=== PATIENT | female | born 1945 | race Caucasian/White ===

== ENCOUNTER 2022-04-17 19:42 | Observation (INO) | payer MEDICARE, MEDICAID, SELFPAY ==
[2022-04-17 19:44] VITALS: BP 131/86; PULSE 32; RESP 18; TEMP 35.7; O2SAT 95; BMI 35.2
[2022-04-17 20:05] VITALS: PULSE 68; RESP 24; O2SAT 96
--- NOTE | 2022-04-17 20:18 | EKG12_ITS ---
Test Reason : DYSRYTHMIA Blood Pressure : / mmHG Vent. Rate : 068 BPM Atrial Rate : 068 BPM P-R Int : 130 ms QRS Dur : 084 ms QT Int : 456 ms P-R-T Axes : 068 006 035 degrees QTc Int : 484 ms Sinus rhythm with bigeminy Nonspecific ST and T wave abnormality Abnormal ECG Confirmed by RICHARD RODRIGUEZ, DANY ([id number]), publications editor DORI GATES ([id number]) on 04/19/2022 11:09:57 AM Referred By: DEBBIE Confirmed By:DANY RAMOS MD
[2022-04-17 20:32] LABS: Absolute Lymphocyte Count 3.54 X10^3/uL (0.83-4.51); Absolute Neutrophil Count 5.6 X10^3/uL (2.0-7.7); Basophil# 0.07 X10^3/uL; Basophil% 0.7 % (0-1); Eosinophil# 0.27 X10^3/uL; Eosinophils% 2.6 % (0-5); Hematocrit 37.4 % (37-47); Hemoglobin 11.8 g/dL (12.0-15.0); Lymphocyte # 3.54 X10^3/ul (0.83-4.51); Lymphocyte % 34.1 % (19-41); Mean Corp Hgb Conc 31.6 g/dL (32-36); Mean Corpuscular Hgb 30.7 pg (27.0-32.0); Mean Corpuscular Volume 97.4 fL (81-99); Mean Platelet Vol. 11.7 fl (6.2-12.0); Monocyte# 0.86 X10^3/uL; Monocyte% 8.3 % (0-10); NRBC Flagged by Analyzer 0 % (0-5); Neutrophil # 5.57 X10^3/uL (2.7-7.7); Neutrophil % 53.6 % (47-70); Platelet Count 382 K/mm3 (150-450); RBC Distribution Width CV 13.6 % (11.6-14.6); RBC Distribution Width SD 48.1 fl (35.1-43.9); Red Blood Count 3.84 M/mm3 (4.2-5.4); White Blood Count 10.4 K/mm3 (4.4-11.0)
[2022-04-17] MEDS: Aspirin 81 MG TAB.CHEW 324 MG PO (20:33)
--- NOTE | 2022-04-17 20:41 | EDS_ITS ---
HPI History of Present Illness Chief Complaint: Dizziness Informant: patient and family Narrative Narrative: Patient presents having several episodes of intermittent weakness and lightheadedness like she is going to pass out today. She has not actually passed out. These have occurred when up as well as when laying down. She states she gets the nausea since that flows through her with these. But she does not feel abnormal pulses. And she does not have chest pain or dyspnea. She has never had this before. The only new medicine that she is getting is azithromycin that was placed through her peritoneal dialysis fluid on Tuesday. This is because she was having cloudy fluid and they found out she has mild peritonitis. But she still eating and drinking. She has had no fevers or chills. No vomiting. She is not having abdominal pain. She states she feels a little pagan when she does peritoneal dialysis but its not hurting. She denies history of heart disease or any heart rhythm problems. I do not get that she is on any beta-blockers or calcium channel blockers. She is not having symptoms right now. Nothing specifically makes them come or go. I attempted to review prior records but we have no records and no prior EKGs on her on our system. [facility] Home Medications allopurinol 100 mg tablet 100 mg PO DAILY 04/17/22 [History Last Taken Unknown] aspirin 81 mg capsule 81 mg PO DAILY 04/17/22 [History Last Taken Unknown] atorvastatin 40 mg tablet 40 mg PO QPM 04/17/22 [History Last Taken Unknown] citalopram 40 mg tablet 40 mg PO DAILY 04/17/22 [History Last Taken Unknown] clopidogrel 75 mg tablet 75 mg PO DAILY 04/17/22 [History Last Taken Unknown] ezetimibe 10 mg tablet 10 mg PO DAILY 04/17/22 [History Last Taken Unknown] fexofenadine 60 mg tablet 60 mg PO 1XD 04/17/22 [History Last Taken Unknown] levothyroxine 75 mcg tablet (Synthroid) 75 mcg PO DAILY 04/17/22 [History Last Taken Unknown] lisinopril 20 mg tablet 20 mg PO BID 04/17/22 [History Last Taken Unknown] melatonin 5 mg tablet 5 mg PO QHS 04/17/22 [History Last Taken Unknown] Allergy/AdvReac Type Severity Reaction Status Date / Time ampicillin Allergy Hives Verified 04/17/22 19:44 loratadine Allergy Hives Verified 04/17/22 20:09 Penicillins [PCN] Allergy Hives Verified 04/17/22 19:44 Social History Smoking Status: Current every day smoker tobacco type: cigarettes ROS ROS ED Constitutional Constitutional ED: Denies chills or fever(s) Eyes Eyes: Denies change in vision ENT ENT ED: Denies rhinorrhea or sore throat Cardiovascular Cardiovascular: Reports other Details: See history of present illness. ; Denies chest pain, palpitations or racing heartbeat Respiratory/Chest Respiratory/Chest: Denies cough or dyspnea Gastrointestinal Gastrointestinal: Denies abdominal pain, nausea or vomiting Genitourinary Genitourinary ED: Reports other Details: Patient makes rare small amounts of urine. Musculoskeletal Musculoskeletal: Denies myalgias Integumentary Denies rash Neurologic Neurologic: Denies headache(s) Psychiatric Psychiatric: Denies anxiety Endocrine Endocrinology: Denies polyuria Hematologic/Lymphatic Hematologic/Lymphatic: Reports easy bleeding and easy bruising Allergic/Immunologic Allergic/Immunologic ED: Denies urticaria EXAM Physical Exam Narrative Exam Narrative: Patient is awake and alert. She is in no acute distress. She will occasionally have a sinus rhythm at about 70 and then go into bigeminy with about the same overall rate. She does not seem to have symptoms of this while laying down. HEENT shows no trauma. Mucous membranes could be minimally dry. There is no JVD on her neck. Lungs are actually clear. I hear no wheezes rhonchi or rales. Heart is regular at times but also has PVCs at other times. These PVCs do not seem to provide distal pulses. Abdomen is soft nontender. Her Tenckhoff catheter is in place. The fluid that is in it does not look cloudy but this is difficult to ascertain through just the tubing. There is no tenderness rebound or guarding. There is no flank tenderness Extremities are not small but they do not have notable pitting edema. Skin is not notably pale. There is no diaphoresis. No jaundice. Patient is neurologically awake alert appropriate with no focal deficit. Const Vital Signs: 04/17/22 19:44 04/17/22 20:05 04/17/22 20:08 Temperature 96.3 F L Temperature Source Temporal Pulse Rate 32 L 68 Respiratory Rate 18 24 H Respiratory Pattern Normal Blood Pressure 131/86 H Blood Pressure Mean 101 Pulse Ox 95 96 Oxygen Delivery Method Room Air Room Air 04/17/22 20:35 04/17/22 22:48 04/17/22 22:48 Temperature 97.8 F Temperature Source Temporal Pulse Rate 76 76 Respiratory Rate 20 H 20 H Respiratory Pattern Blood Pressure 138/61 H 138/61 H Blood Pressure Mean 86 86 Pulse Ox 96 96 Oxygen Delivery Method Room Air Room Air Room Air 04/17/22 23:06 Temperature Temperature Source Pulse Rate Respiratory Rate Respiratory Pattern Blood Pressure Blood Pressure Mean Pulse Ox 96 Oxygen Delivery Method Room Air MDM MDM MDM Narrative Medical decision making narrative: My independent interpretation of the patient's single view AP chest x-ray is suspicious for hiatal hernia. I do not see infiltrative process. Final reading by radiology shows left paraesophageal hernia with adjacent moderate compressive atelectasis. Patient's CBC shows normal white count and platelets. His hemoglobin was minimally low at 8.8 but this is not the cause of her symptoms. Electrolytes were actually quite normal. Creatinine was elevated consistent with a history of renal failure. Glucose was only minimally up at 117. Calcium was mildly low at 7.9 but this is likely due to low albumin. I do not have an albumin level at this time. Magnesium was a bit low. Even though magnesium is generally renally cleared, I think with her dysrhythmia and this low magnesium we should replace this. I will order a single gram to be given. Troponin was slightly elevated at 64. This is a nonspecific elevation. She has never had chest pain. This may be even elevated due to her renal failure. TSH was also high. I have checked the monitor multiple times here. She occasionally will have a sinus rhythm with a rate of about 65-70. She will have PVCs. But she spends qu ite a bit of time in bigeminy. A single time I saw a couplet of PVCs but never more. She has not had any more syncopal events. Her blood pressures been good. I did discuss the case with her rn community health, Dr. Soto. He agreed with admission and they will follow. He would not solis to put in a pacemaker tonight and I agree that she does not need that acutely. I have discussed the case with the hospitalist also. Lab Data Attestation: I reviewed the patient's lab results. Labs: Laboratory Results - last 24 hr 04/17/22 04/17/22 19:57 19:57 WBC 10.4 RBC 3.84 L Hgb 11.8 L Hct 37.4 MCV 97.4 MCH 30.7 MCHC 31.6 L RDW Std Deviation 48.1 H RDW Coeff of Latrell 13.6 Plt Count 382 MPV 11.7 Immature Gran % (Auto) 0.700 Neut % (Auto) 53.6 Lymph % (Auto) 34.1 [place] % (Auto) 8.3 Eos % (Auto) 2.6 Baso % (Auto) 0.7 Absolute Neuts (auto) 5.6 Absolute Lymphs (auto) 3.54 Nucleated RBC % 0 Sodium 140 Potassium 4.1 Chloride 105 Carbon Dioxide 28.0 Anion Gap 7 BUN 18 Creatinine 2.18 H Estim Creat Clear Calc 19.55 Est GFR (MDRD) Af Amer 28 L Est GFR (MDRD) Non-Af 23 L BUN/Creatinine Ratio 8.3 L Glucose 117 H Calcium 7.9 L Magnesium 1.5 L Troponin I High Sens 64 H TSH 5.64 H Radiography Diagnostic Testing: Clinical Impression(s) from Imaging Studies Chest X-Ray 04/17/22 20:48 IMPRESSION: Large left paraesophageal hernia with adjacent moderate compressive atelectasis. Electronically Signed: Ze Triana MD, CHRIS at 20:59 EST Reading Location ID and State: [facility] / [place] Tel , Service support , EKG Initial EKG: Comments: My independent interpretation of the EKG done for syncope and bigeminy shows a bigeminy rhythm with overall rate of 68. Bradycardic sinus rhythm. Her normal beats do appear to be sinus but overall bradycardia with every other beat PVC. No acute ST elevation or depression. NE interval and QRS duration are normal. QTc is a bit long at 484 ms. I do not have old EKG for comparison. Discharge Plan Dx/Rx/DC Orders Clinical Impression: Near syncope, Bigeminy, Elevated troponin, Hypomagnesemia Disposition Disposition: Acute Care [facility]
--- NOTE | 2022-04-17 20:48 | RAD_ITS ---
INDICATION: chest pain EXAMINATION/TECHNIQUE: X-RAY - XR Chest 1 View COMPARISON: None. FINDINGS: LINES/DEVICES: None. LUNGS: Compressive atelectasis within left lower lobe and lingula. MEDIASTINUM AND CARDIOVASCULAR STRUCTURES: Heart size normal. Large left paraesophageal hernia. BONES AND SOFT TISSUES: Unremarkable. RAD/Chest 1 View (Portable) IMPRESSION: Large left paraesophageal hernia with adjacent moderate compressive atelectasis. Electronically Signed: Ze Triana MD, CHRIS at 20:59 EST ,
[2022-04-17 21:26] LABS: Anion Gap 7 (5-15); BUN 18 mg/dL (7-18); BUN/Creat Ratio 8.3 RATIO (10-20); Calcium,Total 7.9 mg/dL (8.5-10.1); Chloride 105 mmol/L (98-107); Creatinine, Serum 2.18 mg/dL (0.55-1.02); EST Glomerular Filtration Rate 23 mL/min (>60); Est Glom Filt Rate - Afr Amer 28 mL/min (>60); Estimated Creatinine Clearance 19.55 ml/min; Glucose 117 mg/dL (74-106); Magnesium 1.5 mg/dL (1.6-2.6); Potassium 4.1 mmol/L (3.5-5.1); Sodium Level 140 mmol/L (136-145); Thyroid Stim Hormone (TSH) 5.64 uIU/mL (0.358-3.74); Troponin-I HS (w/2H Reflex) 64 pg/mL (3.0-54.0)
[2022-04-17 22:26] LABS: Reflex Troponin-HS? (from REC) Y
[2022-04-17 22:48] VITALS: BP 138/61; PULSE 76; RESP 20; TEMP 36.6; O2SAT 96
[2022-04-17 23:06] VITALS: O2SAT 96
--- NOTE | 2022-04-17 23:28 | HP.PCM.HOS_ITS ---
HPI - General General Date of Admission: 04/17/22 Date of Service: 04/17/22 Chief Complaint: near syncope HPI Narrative MOSHE DOWNING, is a 76 F with a past medical history as outlined who presents via the ED on 04/17/2022 with a complaint of near syncope. Patient has been on azithromycin for the past few days on account of peritonitis from peritoneal dialysis. Patient says she felt weak and lightheaded patient was out for about a minute and subsequently came around. She denied any headache, palpitations, blurred vision, dizziness, nausea vomiting or diarrhea. She had not had any other symptoms. She recently had cloudy peritoneal fluid and she was diagnosed with mild peritonitis and placed on azithromycin by her radio sales account executive. She denies any fever or chills and has not had any abdominal pain. Patient denies any history of heart disease and says she is never had any stents placed or pacemaker or had any heart surgery. She denies any family history of this and the only new medication that she is taking is the azithromycin. She is not on any beta-tawana. Review of systems otherwise negative. Vitals in the ED where At time of review, vitals were temperature of 97.8 Fahrenheit with pulse rate of 76, blood pressure 138/60 1 mm respiratory of 20. She was saturating 96% on room air. Of note, when she came into the ED initially her heart rate was 32 but was noticed that she was in bigeminy on the telemetry so each ventricular couplets was counted as 1 has her heart rate being recorded as 32. EKG showed sinus rhythm with PVCs. CBC was unremarkable and BMP showed potassium of 4.1, creatinine of 2.18 and magnesium of 1.5. TSH was 5.6 when initial troponin was 64. Chest x-ray showed a large left paraesophageal hernia with moderate adjacent compressive atelectasis. She has been admitted to be managed for near syncope likely due to ventricular bigeminy in the setting of hypomagnesemia. [facility] Medical History (Updated 04/18/22 @ 00:23 by Amberly Adams) Dialysis patient GERD (gastroesophageal reflux disease) Kidney disease Non-smoker Sleep apnea TIA (transient ischemic attack) Home Medications allopurinol 100 mg tablet 100 mg PO DAILY 04/17/22 [History Last Taken Unknown] aspirin 81 mg capsule 81 mg PO DAILY 04/17/22 [History Last Taken Unknown] atorvastatin 40 mg tablet 40 mg PO QPM 04/17/22 [History Last Taken Unknown] citalopram 40 mg tablet 40 mg PO DAILY 04/17/22 [History Last Taken Unknown] clopidogrel 75 mg tablet 75 mg PO DAILY 04/17/22 [History Last Taken Unknown] ezetimibe 10 mg tablet 10 mg PO DAILY 04/17/22 [History Last Taken Unknown] fexofenadine 60 mg tablet 60 mg PO 1XD 04/17/22 [History Last Taken Unknown] levothyroxine 75 mcg tablet (Synthroid) 75 mcg PO DAILY 04/17/22 [History Last Taken Unknown] lisinopril 20 mg tablet 20 mg PO BID 04/17/22 [History Last Taken Unknown] melatonin 5 mg tablet 5 mg PO QHS 04/17/22 [History Last Taken Unknown] vancomycin 1.75 gram/500 mL in dextrose 5 % intravenous solution 1,750 mg Q5D PERITONITIS 04/18/22 [History Last Taken 04/14/22] Allergy/AdvReac Type Severity Reaction Status Date / Time ampicillin Allergy Hives Verified 04/17/22 19:44 loratadine Allergy Hives Verified 04/17/22 20:09 Penicillins [PCN] Allergy Hives Verified 04/17/22 19:44 Social History Smoking Status: Current every day smoker tobacco type: cigarettes ROS Review of Systems ROS Unobtainable: Denies due to encephalopathy Constitutional Constitutional: Reports fatigue, malaise and weakness; Denies anorexia, chills or fever(s) Eyes Eyes: Denies change in vision ENT HEENT: Denies dysphagia, headache(s) or sore throat Cardiovascular Cardiovascular: Reports lightheadedness; Denies chest pain, dyspnea on exertion, edema, orthopnea, palpitations, paroxysmal nocturnal dyspnea, rapid heart rate or syncope Respiratory/Chest Respiratory/Chest: Denies cough, dyspnea, productive cough, shortness of breath at rest, shortness of breath with exertion or wheezing Gastrointestinal Gastrointestinal: Denies abdominal pain, diarrhea, nausea or vomiting Genitourinary Genitourinary: Denies dysuria Musculoskeletal Musculoskeletal: Denies arthralgias, joint pain or joint stiffness Neurologic Neurologic: Reports dizziness; Denies confusion, focal weakness, headache(s), numbness, seizure-like activity, seizures, syncope or tingling Psychiatric Psychiatric: Denies anxiety or depression Endocrine Endocrinology: Denies change in body appearance Hematologic/Lymphatic Hematologic/Lymphatic: Denies anemia Vital Signs Vital Signs Vital Signs: 04/17/22 19:44 04/17/22 20:05 04/17/22 20:08 Temperature 96.3 F L Temperature Source Temporal Pulse Rate 32 L 68 Respiratory Rate 18 24 H Respiratory Pattern Normal Blood Pressure 131/86 H Blood Pressure Mean 101 Pulse Ox 95 96 Oxygen Delivery Method Room Air Room Air 04/17/22 20:35 04/17/22 22:48 04/17/22 22:48 Temperature 97.8 F Temperature Source Temporal Pulse Rate 76 76 Respiratory Rate 20 H 20 H Respiratory Pattern Blood Pressure 138/61 H 138/61 H Blood Pressure Mean 86 86 Pulse Ox 96 96 Oxygen Delivery Method Room Air Room Air Room Air 04/17/22 23:06 Temperature Temperature Source Pulse Rate Respiratory Rate Respiratory Pattern Blood Pressure Blood Pressure Mean Pulse Ox 96 Oxygen Delivery Method Room Air Weight Weight: 205 lb Body Mass Index (BMI) 35.2 Physical Exam Const alert, oriented x3 and no apparent distress General Appearance: cooperative HEENT normocephalic, head/scalp atraumatic, hearing grossly normal bilaterally and m oist oral mucous membranes Mouth: oral and palatal mucosa normal Eyes PERRL, EOMs intact bilaterally and conjunctivae normal Neck no lymphadenopathy, supple and no JVD Resp normal respiratory effort, no retractions, no use of accessory muscles and clear to auscultation bilaterally Cardio regular rate, regular rhythm, S1 normal heart sound, S2 normal heart sound and no murmurs Cardio Narrative: occasional PVCs GI normal to inspection, nondistended, normoactive bowel sounds, soft to palpation, non-tender and non-distended Extremity normal to inspection, full ROM and no clubbing, cyanosis or edema Neuro oriented x3, CN's II-XII intact bilaterally, moves all extremities and no focal motor deficits Sensorium / Orientation: awake and alert Motor Exam: strength 5/5 throughout Psych affect normal Results Lab / Micro Data Result Diagrams: 04/18/22 03:45 04/18/22 03:45 Labs: Laboratory Results - last 24 hr 04/17/22 19:57: WBC 10.4, RBC 3.84 L, Hgb 11.8 L, Hct 37.4, MCV 97.4, MCH 30.7, MCHC 31.6 L, RDW Std Deviation 48.1 H, RDW Coeff of Latrell 13.6, Plt Count 382, MPV 11.7, Immature Gran % (Auto) 0.700, Neut % (Auto) 53.6, Lymph % (Auto) 34.1, [place] % (Auto) 8.3, Eos % (Auto) 2.6, Baso % (Auto) 0.7, Absolute Neuts (auto) 5.6, Absolute Lymphs (auto) 3.54, Nucleated RBC % 0 04/17/22 19:57: Sodium 140, Potassium 4.1, Chloride 105, Carbon Dioxide 28.0, Anion Gap 7, BUN 18, Creatinine 2.18 H, Estim Creat Clear Calc 19.55, Est GFR (MDRD) Af Amer 28 L, Est GFR (MDRD) Non-Af 23 L, BUN/Creatinine Ratio 8.3 L, Glucose 117 H, Calcium 7.9 L, Magnesium 1.5 L, Troponin I High Sens 64 H, TSH 5.64 H Radiology Impression Chest X-Ray 04/17/22 20:48 IMPRESSION: Large left paraesophageal hernia with adjacent moderate compressive atelectasis. Electronically Signed: Ze Triana MD, CHRIS at 20:59 EST Reading Location ID and State: [facility] / [place] Tel , Service support , Assessment & Plan Assessment/Plan (1) Near syncope: (2) Bigeminy: (3) Elevated troponin: (4) Hypomagnesemia: PLAN: Plan #near syncope due to ventricular arrhythmia * admit to PCU * had ventricular bigeminy on telemetry * magnesium is 1.5, will replace. K is 4.1 * intial troponin was also mildly elevated. WIll cycle * hydrate gently with IVF * 2D echo to be done Tuesday * keep K >4 and Mg >2 * consult cardiology * fall precautions * #Elevated troponin * denies any chest pain. * initial troponin is 64; will cycle * already on aspirin and plavix as well as statin due to previous history of stroke * 2D echo ordered * * #HYpomagnesemia: Mg is 1.5. Will replace and trend. Goal is Mg > 2 #Hypothyroidism: * TSH is 5.64. On Synthroid. * Will not adjust dose for now in light of her age as TSH up to 8 is okay in elderly folks. * #ESRD * on peritoneal dialysis. Says she has been on azithromycin for mild peritonitis * nephrology consulted * #Hypertension: On lisinopril #Hyperlipidemia: On ezetimibe DVT prophylaxis: Lovenox CODE STATUS: Full code * Patient and her daughters counseled extensively about different types of CODE STATUS including full code, DNR CCA and DNR CCA. Patient elects to be full code. * Total [id number] time 17 minutes. Charges/Coding Visit Charges Inpatient E&M: 53695 Init Hosp L3 Procedures Hospitalists Procedures: 64109 Advncd Care Plan 30 Min
[2022-04-18] VITALS (10 sets, daily range): BP systolic 145–175; BP diastolic 50–86; PULSE 55–63; RESP 14–18; TEMP 36.5–36.7; O2SAT 97–100; BMI 36.7
[2022-04-18] MEDS: 0.9% Normal Saline 1,000 ML 125 ML IV (00:24)
--- NOTE | 2022-04-18 00:32 | NURSING ---
This RN called and spoke with pt daughter Lucinda and updated on pt admission and need for peritoneal dialysis supplies. Lucinda is to bring in pt peritoneal dialysis supplies tonight. Milka FERRELL
--- NOTE | 2022-04-18 01:32 | NURSING ---
Patient hooked self up to bag from home to drain from peritoneal dialysis
[2022-04-18 01:47] LABS: Troponin-I HS 59 pg/mL (3.0-54.0)
[2022-04-18] MEDS: Levothyroxine 75 MCG Tablet PO (03:34)
[2022-04-18 03:54] LABS: Absolute Lymphocyte Count 3.38 X10^3/uL (0.83-4.51); Absolute Neutrophil Count 4.5 X10^3/uL (2.0-7.7); Basophil# 0.06 X10^3/uL; Basophil% 0.7 % (0-1); Eosinophil# 0.32 X10^3/uL; Eosinophils% 3.5 % (0-5); Hematocrit 32.2 % (37-47); Hemoglobin 10.4 g/dL (12.0-15.0); Lymphocyte # 3.38 X10^3/ul (0.83-4.51); Lymphocyte % 37.3 % (19-41); Mean Corp Hgb Conc 32.3 g/dL (32-36); Mean Corpuscular Hgb 31.3 pg (27.0-32.0); Mean Platelet Vol. 11.1 fl (6.2-12.0); Monocyte# 0.79 X10^3/uL; Monocyte% 8.7 % (0-10); NRBC Flagged by Analyzer 0 % (0-5); Neutrophil # 4.46 X10^3/uL (2.7-7.7); Neutrophil % 49.2 % (47-70); Platelet Count 284 K/mm3 (150-450); RBC Distribution Width CV 13.4 % (11.6-14.6); RBC Distribution Width SD 47.6 fl (35.1-43.9); Red Blood Count 3.32 M/mm3 (4.2-5.4); White Blood Count 9.1 K/mm3 (4.4-11.0)
[2022-04-18 04:11] LABS: Troponin-I HS 52 pg/mL (3.0-54.0)
[2022-04-18 04:14] LABS: Anion Gap 8 (5-15); BUN 19 mg/dL (7-18); BUN/Creat Ratio 9.2 RATIO (10-20); Calcium,Total 7.6 mg/dL (8.5-10.1); Chloride 105 mmol/L (98-107); Creatinine, Serum 2.07 mg/dL (0.55-1.02); EST Glomerular Filtration Rate 25 mL/min (>60); Est Glom Filt Rate - Afr Amer 30 mL/min (>60); Estimated Creatinine Clearance 20.59 ml/min; Glucose 95 mg/dL (74-106); Magnesium 1.7 mg/dL (1.6-2.6); Potassium 2.9 mmol/L (3.5-5.1); Sodium Level 145 mmol/L (136-145)
[2022-04-18] MEDS: Potassium Chloride 10mEq/100mL 10 MEQ/100 ML IV.SOLN. 70 MEQ IV BOLUS (05:05)
[2022-04-18] MEDS: Potassium Chloride Oral Tablet 20 MEQ 60 MEQ PO (06:09)
--- NOTE | 2022-04-18 08:14 | PN.HOSP_ITS ---
Subjective Subjective Follow-up near syncope. Has not had any further episodes, no abdominal pain, no shortness of breath or chest pain Objective Data Objective Data Vital Signs: Vital Signs Temp Pulse Resp BP Pulse Ox O2 Del Method 97.9 F 55 L 18 149/59 H 100 Room Air 04/18/22 06:34 04/18/22 06:34 04/18/22 06:34 04/18/22 06:34 04/18/22 06:34 04/18/22 06:34 Oxygen Delivery Method Room Air Weight: 97 kg Body Mass Index (BMI) 36.7 Intake & Output: Intake and Output for Last 24 Hours 04/16/22 04/17/22 04/18/22 23:59 23:59 23:59 Intake Total 952.41 / 952.41 Balance 952.41 / 952.41 Lab / Micro Data Result Diagrams: 04/18/22 03:45 04/18/22 03:45 Labs: Laboratory Results - last 24 hr 04/17/22 19:57: WBC 10.4, RBC 3.84 L, Hgb 11.8 L, Hct 37.4, MCV 97.4, MCH 30.7, MCHC 31.6 L, RDW Std Deviation 48.1 H, RDW Coeff of Latrell 13.6, Plt Count 382, MPV 11.7, Immature Gran % (Auto) 0.700, Neut % (Auto) 53.6, Lymph % (Auto) 34.1, [place] % (Auto) 8.3, Eos % (Auto) 2.6, Baso % (Auto) 0.7, Absolute Neuts (auto) 5.6, Absolute Lymphs (auto) 3.54, Nucleated RBC % 0 04/17/22 19:57: Sodium 140, Potassium 4.1, Chloride 105, Carbon Dioxide 28.0, Anion Gap 7, BUN 18, Creatinine 2.18 H, Estim Creat Clear Calc 19.55, Est GFR (MDRD) Af Amer 28 L, Est GFR (MDRD) Non-Af 23 L, BUN/Creatinine Ratio 8.3 L, Glucose 117 H, Calcium 7.9 L, Magnesium 1.5 L, Troponin I High Sens 64 H, TSH 5.64 H 04/18/22 00:33: Troponin I High Sens 59 H 04/18/22 03:45: WBC 9.1, RBC 3.32 L, Hgb 10.4 L, Hct 32.2 L, MCV 97.0, MCH 31.3, MCHC 32.3, RDW Std Deviation 47.6 H, RDW Coeff of Latrell 13.4, Plt Count 284, MPV 11.1, Immature Gran % (Auto) 0.600, Neut % (Auto) 49.2, Lymph % (Auto) 37.3, [place] % (Auto) 8.7, Eos % (Auto) 3.5, Baso % (Auto) 0.7, Absolute Neuts (auto) 4.5, Absolute Lymphs (auto) 3.38, Nucleated RBC % 0 04/18/22 03:45: Sodium 145, Potassium 2.9 L, Chloride 105, Carbon Dioxide 32.0, Anion Gap 8, BUN 19 H, Creatinine 2.07 H, Estim Creat Clear Calc 20.59, Est GFR (MDRD) Af Amer 30 L, Est GFR (MDRD) Non-Af 25 L, BUN/Creatinine Ratio 9.2 L, Glucose 95, Calcium 7.6 L, Magnesium 1.7 04/18/22 03:45: Troponin I High Sens 52 Radiography Diagnostic Testing: Radiology Impression Chest X-Ray 04/17/22 20:48 IMPRESSION: Large left paraesophageal hernia with adjacent moderate compressive atelectasis. Electronically Signed: Ze Triana MD, CHRIS at 20:59 EST Reading Location ID and State: [address] [place] [address] Tel , Service support , Physical Exam Const alert and no apparent distress Constitutional Narrative: Oriented HEENT normocephalic and head/scalp atraumatic Eyes Eyes Narrative: EOM grossly intact, anicteric Neck supple Resp normal respiratory effort and clear to auscultation bilaterally Cardio regular rate and regular rhythm GI soft to palpation, non-tender and non-distended Extremity Extremity Narrative: No edema appreciated Neuro moves all extremities Neuro Narrative: No overt focal deficits appreciated Psych Psych Narrative: Cooperative Assessment & Plan Assessment/Plan (1) Near syncope: (2) Bigeminy: (3) Elevated troponin: (4) Hypomagnesemia: PLAN: Plan 76-year-old female with history of TIA, sleep apnea, GERD, end-stage renal disease on PD, presented to [facility] 04/17/2022 with near syncope. Had been on azithromycin for several days due to peritonitis from peritoneal dialysis and she became weak and lightheaded and passed out for roughly 1 minute before regaining consciousness. She recently had mildly cloudy peritoneal fluid and was diagnosed with peritonitis and placed on as a throw by nephrology. No history of heart disease, no stent placements, no pacemaker, no heart surgery. Not on a beta-tawana. In ED heart rate 76, heart rate initially recorded was 32 but she was in bigeminy on telemetry and each ventricular couplet was counted as 102 heart rate was not 32. Creatinine 2.18 mag 1.5. Initial troponin 64 and TSH 5.6. Potassium 4.1. Chest x-ray with large left paraesophageal hernia and moderate adjacent compressive atelectasis. Admitted for near syncope likely due to arrhythmia. #Near syncope due to ventricular arrhythmia Bigeminy and sinus bradycardia, QTC also was 484, no previous EKG for comparison Telemetry Magnesium replaced, potassium within normal limits Troponin cycled as initial was mildly elevated but down trended Gentle IVF Echo ordered Cardiology consulted #Elevated troponin?resolved Initial Trop was 64 but this down trended Already on aspirin Plavix and statin due to history of stroke 2D echo ordered #Hypothyroidism TSH 5.64, on Synthroid #End-stage renal disease on peritoneal dialysis Recently on is a throw for mild peritonitis Nephrology consulted #DVT prophylaxis: Lovenox
[2022-04-18] MEDS: Aspirin 81 MG TAB.CHEW PO (08:19)
--- NOTE | 2022-04-18 08:55 | CON.PCM.CA_ITS ---
Assessment & Plan Assessment/Plan (1) Bigeminy: PLAN: She does have ventricular bigeminy with frequent premature ventricular complexes and in the setting of low magnesium and potassium. I would recommend that we replace the above. An echocardiogram should be performed to assess her ventricular function and depending on the findings further recommendations will be made. (2) Near syncope: PLAN: She did have an episode of near syncope which I suspect is secondary to her electrolytes and possibly her prolonged QT. She did have some nonsustained ventricular tachyarrhythmia which may be related to early torsade. I would recommend that we replace her potassium to more than 4, magnesium to more than 2, and discontinue the azithromycin. Thank you for allowing me to participate in the care of your patient. Please don't hesitate to call if any issues arise. HPI Consult Data Date of Consult: 04/18/22 HPI Narrative HPI Narrative: MOSHE DOWNING, is a 76 F who presents with a complaint of near syncope. She has a history of chronic renal disease and is on peritoneal dialysis and was put on azithromycin recently on account of her peritonitis. She felt weak and lightheaded for about a minute and then presented to the emergency room. She was evaluated was noted to be bradycardic with premature ventricular complexes in a pattern of bigeminy. She says that she is not sure whether she has had any previous heart work done. At time of review, vitals were temperature of 97.8 Fahrenheit with pulse rate of 76, blood pressure 138/60 1 mm respiratory of 20.? She was saturating 96% on room air.? She was noted to be in sinus rhythm with ventricular bigeminy. Initial potassium was noted to be normal but has subsequently reduced her magnesium was noted to be low. Her QT interval was prolonged.? CBC was unremarkable and BMP showed potassium of 4.1, creatinine of 2.18 and magnesium of 1.5.? TSH was 5.6 when initial troponin was 64.? Chest x-ray showed a large left paraesophageal hernia with moderate adjacent compressive atelectasis.? She has been admitted to be managed for near syncope likely due to ventricular bigeminy in the setting of hypomagnesemia. Currently she appears to be doing fairly well. It is difficult to obtain a straight history from her. [facility] Medical History Dialysis patient GERD (gastroesophageal reflux disease) Kidney disease Non-smoker Sleep apnea TIA (transient ischemic attack) Home Medications allopurinol 100 mg tablet 100 mg PO DAILY 04/17/22 [History Last Taken Unknown] aspirin 81 mg capsule 81 mg PO DAILY 04/17/22 [History Last Taken Unknown] atorvastatin 40 mg tablet 40 mg PO QPM 04/17/22 [History Last Taken Unknown] citalopram 40 mg tablet 40 mg PO DAILY 04/17/22 [History Last Taken Unknown] clopidogrel 75 mg tablet 75 mg PO DAILY 04/17/22 [History Last Taken Unknown] ezetimibe 10 mg tablet 10 mg PO DAILY 04/17/22 [History Last Taken Unknown] fexofenadine 60 mg tablet 60 mg PO 1XD 04/17/22 [History Last Taken Unknown] levothyroxine 75 mcg tablet (Synthroid) 75 mcg PO DAILY 04/17/22 [History Last Taken Unknown] lisinopril 20 mg tablet 20 mg PO BID 04/17/22 [History Last Taken Unknown] melatonin 5 mg tablet 5 mg PO QHS 04/17/22 [History Last Taken Unknown] vancomycin 1.75 gram/500 mL in dextrose 5 % intravenous solution 1,750 mg Q5D PERITONITIS 04/18/22 [History Last Taken 04/14/22] Allergy/AdvReac Type Severity Reaction Status Date / Time ampicillin Allergy Hives Verified 04/17/22 19:44 loratadine Allergy Hives Verified 04/17/22 20:09 Penicillins [PCN] Allergy Hives Verified 04/17/22 19:44 Social History Smoking Status: Current every day smoker tobacco type: cigarettes ROS Review of Systems ROS Unobtainable: Denies due to encephalopathy Constitutional Constitutional: Reports fatigue, malaise and weakness; Denies anorexia, chills or fever(s) Eyes Eyes: Denies change in vision ENT HEENT: Denies dysphagia, headache(s) or sore throat Cardiovascular Cardiovascular: Reports lightheadedness; Denies chest pain, dyspnea on exertion, edema, orthopnea, palpitations, paroxysmal nocturnal dyspnea, rapid heart rate or syncope Respiratory/Chest Respiratory/Chest: Denies cough, dyspnea, productive cough, shortness of breath at rest, shortness of breath with exertion or wheezing Gastrointestinal Gastrointestinal: Denies abdominal pain, diarrhea, nausea or vomiting Genitourinary Genitourinary: Denies dysuria Musculoskeletal Musculoskeletal: Denies arthralgias, joint pain or joint stiffness Neurologic Neurologic: Reports dizziness; Denies confusion, focal weakness, headache(s), numbness, seizure-like activity, seizures, syncope or tingling Psychiatric Psychiatric: Denies anxiety or depression Endocrine Endocrinology: Denies change in body appearance Hematologic/Lymphatic Hematologic/Lymphatic: Denies anemia Physical Exam Const alert and no apparent distress Constitutional Narrative: Oriented HEENT normocephalic and head/scalp atraumatic Eyes Eyes Narrative: EOM grossly intact, anicteric Neck supple Resp normal respiratory effort and clear to auscultation bilaterally Cardio regular rate and regular rhythm GI soft to palpation, non-tender and non-distended Extremity Extremity Narrative: No edema appreciated Neuro moves all extremities Neuro Narrative: No overt focal deficits appreciated Psych Psych Narrative: Cooperative Risk Stratification Risk Stratification Applicable: No Objective Data Vital Signs: Vital Signs Temp Pulse Resp BP Pulse Ox O2 Del Method 97.9 F 55 L 18 149/59 H 100 Room Air 04/18/22 06:34 04/18/22 06:34 04/18/22 06:34 04/18/22 06:34 04/18/22 06:34 04/18/22 06:34 Oxygen Delivery Method Room Air Weight: 213 lb 13.574 oz Body Mass Index (BMI) 36.7 Intake & Output: Intake and Output for Last 24 Hours 04/16/22 04/17/22 04/18/22 23:59 23:59 23:59 Intake Total 952.41 / 952.41 Balance 952.41 / 952.41 Lab / Micro Data Result Diagrams: 04/18/22 03:45 04/18/22 03:45 Labs: Laboratory Results - last 24 hr 04/17/22 19:57: WBC 10.4, RBC 3.84 L, Hgb 11.8 L, Hct 37.4, MCV 97.4, MCH 30.7, MCHC 31.6 L, RDW Std Deviation 48.1 H, RDW Coeff of Latrell 13.6, Plt Count 382, MPV 11.7, Immature Gran % (Auto) 0.700, Neut % (Auto) 53.6, Lymph % (Auto) 34.1, [place] % (Auto) 8.3, Eos % (Auto) 2.6, Baso % (Auto) 0.7, Absolute Neuts (auto) 5.6, Absolute Lymphs (auto) 3.54, Nucleated RBC % 0 04/17/22 19:57: Sodium 140, Potassium 4.1, Chloride 105, Carbon Dioxide 28.0, Anion Gap 7, BUN 18, Creatinine 2.18 H, Estim Creat Clear Calc 19.55, Est GFR (MDRD) Af Amer 28 L, Est GFR (MDRD) Non-Af 23 L, BUN/Creatinine Ratio 8.3 L, Glucose 117 H, Calcium 7.9 L, Magnesium 1.5 L, Troponin I High Sens 64 H, TSH 5.64 H 04/18/22 00:33: Troponin I High Sens 59 H 04/18/22 03:45: WBC 9.1, RBC 3.32 L, Hgb 10.4 L, Hct 32.2 L, MCV 97.0, MCH 31.3, MCHC 32.3, RDW Std Deviation 47.6 H, RDW Coeff of Latrell 13.4, Plt Count 284, MPV 11.1, Immature Gran % (Auto) 0.600, Neut % (Auto) 49.2, Lymph % (Auto) 37.3, [place] % (Auto) 8.7, Eos % (Auto) 3.5, Baso % (Auto) 0.7, Absolute Neuts (auto) 4.5, Absolute Lymphs (auto) 3.38, Nucleated RBC % 0 04/18/22 03:45: Sodium 145, Potassium 2.9 L, Chloride 105, Carbon Dioxide 32.0, Anion Gap 8, BUN 19 H, Creatinine 2.07 H, Estim Creat Clear Calc 20.59, Est GFR (MDRD) Af Amer 30 L, Est GFR (MDRD) Non-Af 25 L, BUN/Creatinine Ratio 9.2 L, Glucose 95, Calcium 7.6 L, Magnesium 1.7 04/18/22 03:45: Troponin I High Sens 52 Cardiology Labs/Tests 04/17/22 19:57: WBC 10.4, RBC 3.84 L, Hgb 11.8 L, Hct 37.4, MCV 97.4, MCH 30.7, MCHC 31.6 L, Plt Count 382, MPV 11.7, Immature Gran % (Auto) 0.700, Neut % (Auto) 53.6, Lymph % (Auto) 34.1, [place] % (Auto) 8.3, Eos % (Auto) 2.6, Baso % (Auto) 0.7, Absolute Neuts (auto) 5.6, Nucleated RBC % 0 04/17/22 19:57: Sodium 140, Potassium 4.1, Chloride 105, Carbon Dioxide 28.0, Anion Gap 7, BUN 18, Creatinine 2.18 H, Est GFR (MDRD) Af Amer 28 L, Est GFR (MDRD) Non-Af 23 L, BUN/Creatinine Ratio 8.3 L, Glucose 117 H, Calcium 7.9 L, Magnesium 1.5 L 04/18/22 03:45: WBC 9.1, RBC 3.32 L, Hgb 10.4 L, Hct 32.2 L, MCV 97.0, MCH 31.3, MCHC 32.3, Plt Count 284, MPV 11.1, Immature Gran % (Auto) 0.600, Neut % (Auto) 49.2, Lymph % (Auto) 37.3, [place] % (Auto) 8.7, Eos % (Auto) 3.5, Baso % (Auto) 0.7, Absolute Neuts (auto) 4.5, Nucleated RBC % 0 04/18/22 03:45: Sodium 145, Potassium 2.9 L, Chloride 105, Carbon Dioxide 32.0, Anion Gap 8, BUN 19 H, Creatinine 2.07 H, Est GFR (MDRD) Af Amer 30 L, Est GFR (MDRD) Non-Af 25 L, BUN/Creatinine Ratio 9.2 L, Glucose 95, Calcium 7.6 L, Magnesium 1.7 Rhythm: EKG: ECHO: Stress Test: Cardiac Cath: PCI: CT Surgery: Holter monitor: EPS: PPM: CXR: Chest CT Scan: Radiography Diagnostic Testing: Radiology Impression Chest X-Ray 04/17/22 20:48 IMPRESSION: Large left paraesophageal hernia with adjacent moderate compressive atelectasis. Electronically Signed: Ze Triana MD, CHRIS at 20:59 EST Reading Location ID and State: [facility] / [place] Tel , Service support ,
[2022-04-18] MEDS: Potassium Chloride Oral Tablet 20 MEQ 40 MEQ PO (10:09)
[2022-04-18] MEDS: Citalopram 40 MG TABLET PO (10:09)
[2022-04-18] MEDS: Lisinopril 20 MG Tablet PO ×2 (10:09→20:19)
[2022-04-18] MEDS: Enoxaparin 30 MG/0.3 ML Syringe SC (10:10)
[2022-04-18] MEDS: Allopurinol 100 MG Tablet PO (10:10)
[2022-04-18] MEDS: Ezetimibe 10 MG Tablet PO (10:10)
[2022-04-18] MEDS: Clopidogrel Bisulfate 75 MG Tablet PO (10:10)
--- NOTE | 2022-04-18 17:22 | CON.PCM.RE_ITS ---
Assessment & Plan Assessment/Plan (1) ESRD (end stage renal disease): PLAN: has been on PD for about 7 months. Does manual exchanged 3 times a day. has been doing it here without any issues. continue same. Peritonitis. was diagnosed on tuesday. peritoneal fluid was cloudy. culture positive. apparently was using vancomycin as last fill on manual exchange. but she has been using it every 4 days not sure if this is going to be enough. repeat another dose today/tomorrow. will check vanco level in am. will send PD fluid to cell count and culture. HPI Consult Data Date of Consult: 04/18/22 HPI Narrative Reason for Consultation: ESRD HPI Narrative: MOSHE DOWNING, is a 76 F who presents with dizziness. renal consulted in view of ESRD. on PD since October 2021. was diagnosed with peritonitis tuesday last week. on vancomycin. developed dizziness. currently denies any complaints. some LE edema. Bp is ok. PD fluid is clear now as per family. [facility] Medical History Dialysis patient GERD (gastroesophageal reflux disease) Kidney disease Non-smoker Sleep apnea TIA (transient ischemic attack) Home Medications allopurinol 100 mg tablet 100 mg PO DAILY 04/17/22 [History Last Taken Unknown] aspirin 81 mg capsule 81 mg PO DAILY 04/17/22 [History Last Taken Unknown] atorvastatin 40 mg tablet 40 mg PO QPM 04/17/22 [History Last Taken Unknown] citalopram 40 mg tablet 40 mg PO DAILY 04/17/22 [History Last Taken Unknown] clopidogrel 75 mg tablet 75 mg PO DAILY 04/17/22 [History Last Taken Unknown] ezetimibe 10 mg tablet 10 mg PO DAILY 04/17/22 [History Last Taken Unknown] fexofenadine 60 mg tablet 60 mg PO 1XD 04/17/22 [History Last Taken Unknown] levothyroxine 75 mcg tablet (Synthroid) 75 mcg PO DAILY 04/17/22 [History Last Taken Unknown] lisinopril 20 mg tablet 20 mg PO BID 04/17/22 [History Last Taken Unknown] melatonin 5 mg tablet 5 mg PO QHS 04/17/22 [History Last Taken Unknown] vancomycin 1.75 gram/500 mL in dextrose 5 % intravenous solution 1,750 mg Q5D PERITONITIS 01/15/23 [History Last Taken 04/14/22] Allergy/AdvReac Type Severity Reaction Status Date / Time ampicillin Allergy Hives Verified 04/17/22 19:44 loratadine Allergy Hives Verified 04/17/22 20:09 Penicillins [PCN] Allergy Hives Verified 04/17/22 19:44 Social History Smoking Status: Current every day smoker tobacco type: cigarettes ROS ROS Narrative negative except above Physical Exam Narrative Alert awake oriented x 3 no obvious distress no pallor no icterus no JVD s1s2 no murmurs lungs clear abdomen soft no organomegaly no edema no cyanosis Lab / Micro Data Result Diagrams: 04/18/22 03:45 04/18/22 03:45 Labs: Laboratory Results - last 24 hr 04/17/22 19:57: WBC 10.4, RBC 3.84 L, Hgb 11.8 L, Hct 37.4, MCV 97.4, MCH 30.7, MCHC 31.6 L, RDW Std Deviation 48.1 H, RDW Coeff of Latrell 13.6, Plt Count 382, MPV 11.7, Immature Gran % (Auto) 0.700, Neut % (Auto) 53.6, Lymph % (Auto) 34.1, [place] % (Auto) 8.3, Eos % (Auto) 2.6, Baso % (Auto) 0.7, Absolute Neuts (auto) 5.6, Absolute Lymphs (auto) 3.54, Nucleated RBC % 0 04/17/22 19:57: Sodium 140, Potassium 4.1, Chloride 105, Carbon Dioxide 28.0, Anion Gap 7, BUN 18, Creatinine 2.18 H, Estim Creat Clear Calc 19.55, Est GFR (MDRD) Af Amer 28 L, Est GFR (MDRD) Non-Af 23 L, BUN/Creatinine Ratio 8.3 L, Glucose 117 H, Calcium 7.9 L, Magnesium 1.5 L, Troponin I High Sens 64 H, TSH 5.64 H 04/18/22 00:33: Troponin I High Sens 59 H 04/18/22 03:45: WBC 9.1, RBC 3.32 L, Hgb 10.4 L, Hct 32.2 L, MCV 97.0, MCH 31.3, MCHC 32.3, RDW Std Deviation 47.6 H, RDW Coeff of Latrell 13.4, Plt Count 284, MPV 11.1, Immature Gran % (Auto) 0.600, Neut % (Auto) 49.2, Lymph % (Auto) 37.3, [place] % (Auto) 8.7, Eos % (Auto) 3.5, Baso % (Auto) 0.7, Absolute Neuts (auto) 4.5, Absolute Lymphs (auto) 3.38, Nucleated RBC % 0 04/18/22 03:45: Sodium 145, Potassium 2.9 L, Chloride 105, Carbon Dioxide 32.0, Anion Gap 8, BUN 19 H, Creatinine 2.07 H, Estim Creat Clear Calc 20.59, Est GFR (MDRD) Af Amer 30 L, Est GFR (MDRD) Non-Af 25 L, BUN/Creatinine Ratio 9.2 L, Glucose 95, Calcium 7.6 L, Magnesium 1.7 04/18/22 03:45: Troponin I High Sens 52 Radiology Impression Chest X-Ray 04/17/22 20:48 IMPRESSION: Large left paraesophageal hernia with adjacent moderate compressive atelectasis. Electronically Signed: Ze Triana MD, CHRIS at 20:59 EST Reading Location ID and State: [facility] / [place] Tel , Service support ,
[2022-04-18 17:28] LABS: Anion Gap 6 (5-15); BUN 17 mg/dL (7-18); BUN/Creat Ratio 7.9 RATIO (10-20); Calcium,Total 8.1 mg/dL (8.5-10.1); Chloride 106 mmol/L (98-107); Creatinine, Serum 2.14 mg/dL (0.55-1.02); EST Glomerular Filtration Rate 24 mL/min (>60); Est Glom Filt Rate - Afr Amer 29 mL/min (>60); Estimated Creatinine Clearance 19.92 ml/min; Glucose 120 mg/dL (74-106); Magnesium 2.4 mg/dL (1.6-2.6); Potassium 4.1 mmol/L (3.5-5.1); Sodium Level 142 mmol/L (136-145)
[2022-04-18] MEDS: Atorvastatin Calcium 40 MG Tablet PO (20:19)
[2022-04-18] MEDS: MELATONIN 10 MG TABLET 5 MG PO (20:19)
[2022-04-19] MEDS: Levothyroxine 75 MCG Tablet PO (03:29)
[2022-04-19] MEDS: 0.9% Saline Lock 10 ML Syringe IV (03:29)
[2022-04-19 03:30] VITALS: BP 160/88; PULSE 60; RESP 18; TEMP 36.6; O2SAT 98
--- NOTE | 2022-04-19 05:55 | ECHOD_ITS ---
Reason For Study: Arrhythmia Procedure This was a 2D Doppler, Color Flow transthoracic echocardiogram. Exam performed portable in patient room. Left Ventricle Normal LV size. Left ventricular systolic function is normal. The estimated ejection fraction is 60 %. Stage 1 diastolic dysfunction. No regional wall motion abnormalities noted. Right Ventricle Normal RV size. Normal systolic function. Atria Normal left atrium. Normal right atrium. Mitral Valve Normal mitral valve. Tricuspid Valve Normal tricuspid valve. Mild (1+) tricuspid valve insufficiency. Pulmonary artery systolic pressure is 33 mmHg. Aortic Valve Trisinus/trileaflet aortic valve. Mild (1+) eccentric aortic valve insufficiency. Pulmonic Valve The pulmonic valve is not well visualized. Great Vessels Normal aortic root. The pulmonary artery is normal size. Normal inferior vena cava. Pericardium/Pleural No pericardial effusion. Small left pleural effusion. MMode/2D Measurements & Calculations LVIDd: 4.0 cm IVSd: 0.99 cm Ao root diam: 2.9 cm LVIDs: 2.3 cm LVPWd: 1.0 cm RVDd: 3.1 cm FS: 42.0 % LAV(MOD-bp): 56.5 ml LVAd ap4: 15.4 cm2 SV(MOD-sp4): 20.6 ml LAV(MOD-bp) Indexed: 28.1 ml/m2 LVLd ap4: 6.0 cm LAV(MOD-sp2): 54.2 ml EDV(MOD-sp4): 35.0 ml LAV(MOD-sp4): 54.7 ml EDV(sp4-el): 33.5 ml LVAs ap4: 8.8 cm2 LVLs ap4: 5.0 cm ESV(MOD-sp4): 14.4 ml ESV(sp4-el): 13.1 ml EF(MOD-sp4): 58.9 % EF(sp4-el): 60.9 % SV(sp4-el): 20.4 ml LA A4 area: 21.9 cm2 LA dimension(2D): 3.4 cm RA A4 area: 10.0 cm2 Time Measurements MV dec time: 0.24 sec Doppler Measurements & Calculations MV E max ozzie: 89.5 cm/sec Lat Peak E' Ozzie: 5.9 cm/sec Med Peak E' Ozzie: 5.9 cm/sec MV A max ozzie: 110.8 cm/sec E/E' lat: 15.3 E/E' med: 15.3 MV E/A: 0.81 MV V2 max: 121.7 cm/sec Ao V2 max: 176.9 cm/sec MV max P.9 mmHg MV dec slope: 377.4 cm/sec2 Ao max P.5 mmHg MV V2 mean: 82.4 cm/sec Ao V2 mean: 129.8 cm/sec MV mean P.9 mmHg Ao mean P.5 mmHg MV V2 VTI: 23.5 cm Ao V2 VTI: 35.6 cm AI max ozzie: 484.9 cm/sec LV V1 max: 138.7 cm/sec PA V2 max: 113.6 cm/sec AI max P.1 mmHg LV V1 max P.7 mmHg AI dec slope: 324.5 cm/sec2 AI P1/2t: 437.7 msec TR max ozzie: 267.6 cm/sec TR max P.7 mmHg ECHO/Echo Complete Interpretation Summary Normal LV size. Left ventricular systolic function is normal. The estimated ejection fraction is 60 %. Stage 1 diastolic dysfunction. Pulmonary artery systolic pressure is 33 mmHg. Mild (1+) eccentric aortic valve insufficiency. Ordering Physician: Lubna Smallwood Referring Physician: Cesar Ramos Performed By: Rosmery Sandoval RDCS, RVT
[2022-04-19 06:40] LABS: Absolute Neutrophil Count 4.3 X10^3/uL (2.0-7.7); Basophil# 0.06 X10^3/uL; Basophil% 0.7 % (0-1); Eosinophil# 0.41 X10^3/uL; Eosinophils% 5.1 % (0-5); Hematocrit 31.7 % (37-47); Hemoglobin 10.4 g/dL (12.0-15.0); Lymphocyte % 31.2 % (19-41); Mean Corp Hgb Conc 32.8 g/dL (32-36); Mean Corpuscular Hgb 31.6 pg (27.0-32.0); Mean Corpuscular Volume 96.4 fL (81-99); Mean Platelet Vol. 10.9 fl (6.2-12.0); Monocyte# 0.68 X10^3/uL; Monocyte% 8.5 % (0-10); NRBC Flagged by Analyzer 0 % (0-5); Neutrophil # 4.33 X10^3/uL (2.7-7.7); Neutrophil % 54.1 % (47-70); Platelet Count 295 K/mm3 (150-450); RBC Distribution Width CV 13.5 % (11.6-14.6); RBC Distribution Width SD 47.8 fl (35.1-43.9); Red Blood Count 3.29 M/mm3 (4.2-5.4)
[2022-04-19 07:08] LABS: Anion Gap 8 (5-15); BUN 17 mg/dL (7-18); BUN/Creat Ratio 8.2 RATIO (10-20); Calcium,Total 7.8 mg/dL (8.5-10.1); Chloride 104 mmol/L (98-107); Creatinine, Serum 2.08 mg/dL (0.55-1.02); EST Glomerular Filtration Rate 25 mL/min (>60); Est Glom Filt Rate - Afr Amer 30 mL/min (>60); Estimated Creatinine Clearance 20.49 ml/min; Glucose 90 mg/dL (74-106); Potassium 3.7 mmol/L (3.5-5.1); Sodium Level 142 mmol/L (136-145)
--- NOTE | 2022-04-19 07:35 | EKG12_ITS ---
Test Reason : Blood Pressure : / mmHG Vent. Rate : 090 BPM Atrial Rate : 090 BPM P-R Int : 104 ms QRS Dur : 084 ms QT Int : 426 ms P-R-T Axes : 000 023 029 degrees QTc Int : 521 ms Sinus rhythm with short LA Prolonged QT Abnormal ECG When compared with ECG of 17-APR-2022 19:56, T wave inversion no longer evident in Lateral leads Confirmed by KRISTAL RODRIGUEZ, ROBERTO ([id number]), field map editor DORI GAETS ([id number]) on 05/10/2022 12:50:56 PM Referred By: CLINT Confirmed By:KOKO GIRALDO MD
--- NOTE | 2022-04-19 07:50 | PN.CARD_ITS ---
Subjective Subjective Patient seen and evaluated. Appears to be doing better this morning. No significant arrhythmias noted on telemetry. Objective Data Vital Signs: Vital Signs Temp Pulse Resp BP Pulse Ox O2 Del Method 98 F 60 18 160/88 H 98 Room Air 04/19/22 03:30 04/19/22 03:30 04/19/22 03:30 04/19/22 03:30 04/19/22 03:30 04/19/22 03:30 Oxygen Delivery Method Room Air Weight: 213 lb 13.574 oz Body Mass Index (BMI) 36.7 Intake & Output: Intake and Output for Last 24 Hours 04/17/22 04/18/22 04/19/22 23:59 23:59 23:59 Intake Total 1656.41 / 1656.41 Balance 1656.41 / 1656.41 Lab / Micro Data Result Diagrams: 04/19/22 05:50 04/19/22 05:50 Labs: Laboratory Results - last 24 hr 04/18/22 17:03: Sodium 142, Potassium 4.1, Chloride 106, Carbon Dioxide 30.0, Anion Gap 6, BUN 17, Creatinine 2.14 H, Estim Creat Clear Calc 19.92, Est GFR (MDRD) Af Amer 29 L, Est GFR (MDRD) Non-Af 24 L, BUN/Creatinine Ratio 7.9 L, Glucose 120 H, Calcium 8.1 L, Magnesium 2.4 04/19/22 05:50: WBC 8.0, RBC 3.29 L, Hgb 10.4 L, Hct 31.7 L, MCV 96.4, MCH 31.6, MCHC 32.8, RDW Std Deviation 47.8 H, RDW Coeff of Latrell 13.5, Plt Count 295, MPV 10.9, Immature Gran % (Auto) 0.400, Neut % (Auto) 54.1, Lymph % (Auto) 31.2, [place] % (Auto) 8.5, Eos % (Auto) 5.1 H, Baso % (Auto) 0.7, Absolute Neuts (auto) 4.3, Absolute Lymphs (auto) 2.50, Nucleated RBC % 0 04/19/22 05:50: Sodium 142, Potassium 3.7, Chloride 104, Carbon Dioxide 30.0, Anion Gap 8, BUN 17, Creatinine 2.08 H, Estim Creat Clear Calc 20.49, Est GFR (MDRD) Af Amer 30 L, Est GFR (MDRD) Non-Af 25 L, BUN/Creatinine Ratio 8.2 L, Glucose 90, Calcium 7.8 L 04/19/22 05:50: Random Vancomycin 4.0 Cardiology Labs/Tests 04/18/22 17:03: Sodium 142, Potassium 4.1, Chloride 106, Carbon Dioxide 30.0, Anion Gap 6, BUN 17, Creatinine 2.14 H, Est GFR (MDRD) Af Amer 29 L, Est GFR (MDRD) Non-Af 24 L, BUN/Creatinine Ratio 7.9 L, Glucose 120 H, Calcium 8.1 L, Magnesium 2.4 04/19/22 05:50: WBC 8.0, RBC 3.29 L, Hgb 10.4 L, Hct 31.7 L, MCV 96.4, MCH 31.6, MCHC 32.8, Plt Count 295, MPV 10.9, Immature Gran % (Auto) 0.400, Neut % (Auto) 54.1, Lymph % (Auto) 31.2, [place] % (Auto) 8.5, Eos % (Auto) 5.1 H, Baso % (Auto) 0.7, Absolute Neuts (auto) 4.3, Nucleated RBC % 0 04/19/22 05:50: Sodium 142, Potassium 3.7, Chloride 104, Carbon Dioxide 30.0, Anion Gap 8, BUN 17, Creatinine 2.08 H, Est GFR (MDRD) Af Amer 30 L, Est GFR (MDRD) Non-Af 25 L, BUN/Creatinine Ratio 8.2 L, Glucose 90, Calcium 7.8 L Rhythm: EKG: ECHO: Stress Test: Cardiac Cath: PCI: CT Surgery: Holter monitor: EPS: PPM: CXR: Chest CT Scan: Physical Exam Const alert and no apparent distress Constitutional Narrative: Oriented HEENT normocephalic and head/scalp atraumatic Eyes Eyes Narrative: EOM grossly intact, anicteric Neck supple Resp normal respiratory effort and clear to auscultation bilaterally Cardio regular rate and regular rhythm GI soft to palpation, non-tender and non-distended Extremity Extremity Narrative: No edema appreciated Neuro moves all extremities Neuro Narrative: No overt focal deficits appreciated Psych Psych Narrative: Cooperative Assessment & Plan Assessment/Plan (1) Bigeminy: PLAN: She does have ventricular bigeminy with frequent premature ventricular complexes and in the setting of low magnesium and potassium. * The above has been replaced and the extent of ventricular arrhythmias is much reduced. * Echocardiogram is pending to assess ventricular function and depending on the findings further recommendations will be made. (2) Near syncope: PLAN: She did have an episode of near syncope which I suspect is secondary to her electrolytes and possibly her prolonged QT. She did have some nonsustained ventricular tachyarrhythmia which may be related to early torsade. * Electrolytes have been replaced and level of ectopy is much less * Continue to monitor through today Thank you for allowing me to participate in the care of your patient. Please don't hesitate to call if any issues arise.
[2022-04-19] MEDS: Lisinopril 20 MG Tablet PO (08:51)
[2022-04-19] MEDS: Allopurinol 100 MG Tablet PO (08:51)
[2022-04-19] MEDS: Clopidogrel Bisulfate 75 MG Tablet PO (08:51)
[2022-04-19] MEDS: Ezetimibe 10 MG Tablet PO (08:51)
[2022-04-19] MEDS: Sertraline 50 MG Tablet PO (08:51)
[2022-04-19] MEDS: Enoxaparin 30 MG/0.3 ML Syringe SC (08:52)
[2022-04-19] MEDS: Pantoprazole Sodium 40 MG Tablet PO (08:52)
[2022-04-19] MEDS: Citalopram 20 MG Tablet PO (08:52)
[2022-04-19 09:30] VITALS: BP 149/94; PULSE 84; RESP 18; TEMP 36.5; O2SAT 97
[2022-04-19 13:41] VITALS: O2SAT 92; O2SAT 96
--- NOTE | 2022-04-19 13:48 | PN.RENAL_ITS ---
Subjective Subjective Following for ESRD. The patient denies abdominal pain. She denies dizziness, nausea, or vomiting. Peritoneal dialysis effluent is clear. Objective Data Objective Data Vital Signs: Vital Signs Temp Pulse Resp BP Pulse Ox O2 Del Method 97.7 F L 84 18 149/94 H 97 Room Air 04/19/22 09:30 04/19/22 09:30 04/19/22 09:30 04/19/22 09:30 04/19/22 09:30 04/19/22 09:30 Oxygen Delivery Method Room Air Weight: 97 kg Body Mass Index (BMI) 36.7 Intake & Output: Intake and Output for Last 24 Hours 04/17/22 04/18/22 04/19/22 23:59 23:59 23:59 Intake Total 1656.41 / 1656.41 410 / 410 Balance 1656.41 / 1656.41 410 / 410 Lab / Micro Data Result Diagrams: 04/19/22 05:50 04/19/22 05:50 Labs: Laboratory Results - last 24 hr 04/18/22 17:03: Sodium 142, Potassium 4.1, Chloride 106, Carbon Dioxide 30.0, Anion Gap 6, BUN 17, Creatinine 2.14 H, Estim Creat Clear Calc 19.92, Est GFR (MDRD) Af Amer 29 L, Est GFR (MDRD) Non-Af 24 L, BUN/Creatinine Ratio 7.9 L, Glucose 120 H, Calcium 8.1 L, Magnesium 2.4 04/19/22 05:50: WBC 8.0, RBC 3.29 L, Hgb 10.4 L, Hct 31.7 L, MCV 96.4, MCH 31.6, MCHC 32.8, RDW Std Deviation 47.8 H, RDW Coeff of Latrell 13.5, Plt Count 295, MPV 10.9, Immature Gran % (Auto) 0.400, Neut % (Auto) 54.1, Lymph % (Auto) 31.2, [place] % (Auto) 8.5, Eos % (Auto) 5.1 H, Baso % (Auto) 0.7, Absolute Neuts (auto) 4.3, Absolute Lymphs (auto) 2.50, Nucleated RBC % 0 04/19/22 05:50: Sodium 142, Potassium 3.7, Chloride 104, Carbon Dioxide 30.0, Anion Gap 8, BUN 17, Creatinine 2.08 H, Estim Creat Clear Calc 20.49, Est GFR (MDRD) Af Amer 30 L, Est GFR (MDRD) Non-Af 25 L, BUN/Creatinine Ratio 8.2 L, Glucose 90, Calcium 7.8 L 04/19/22 05:50: Random Vancomycin 4.0 Physical Exam Narrative Alert awake oriented x 3 no obvious distress no pallor no icterus no JVD Normal, s1s2 no murmurs lungs are clear to auscultation clear abdomen is soft, nontender, no guarding or rebound no edema no cyanosis Assessment & Plan Assessment/Plan (1) ESRD (end stage renal disease): (2) Near syncope: (3) Peritonitis associated with peritoneal dialysis: PLAN: Plan Impression/Plan: The patient is a 76-year-old woman with history of ESRD, hypertension, hypothyroidism, TREVER, and prior TIA who was admitted to the hospital on 04/17/2022 with near syncope. Nephrology is following for dialysis management in ESRD patient. ESRD. The patient has been on PD for about 7 months. Does manual exchanged 3 times a day. She is not truly on CAPD since there is a period of time as she is dry at night. She must have some residual kidney function to be able to get away with just 6 L of peritoneal fluid exchange per day for somebody her size. I will touch base with her home dialysis unit in [place] to make sure this is not a mistake. Peritoneal dialysis related peritonitis. This was diagnosed on 3 days prior to admission. Her peritoneal effluent was cloudy. Peritoneal effluent culture was apparently positive for coagulase negative Staphylococcus. She is feeling better and the peritoneal effluent is now cleared. There is no abdominal pain on exam. The patient confirmed that she has been administering IP vancomycin on her own although level is quite low at 4 today. I suspect the patient may have enough residual kidney function that she is excreting vancomycin on her own. She may need more frequent vancomycin IP if infection recurs. I will reach out to her home dialysis unit to make sure there is appropriate follow-up. Near syncope. She was seen by cardiology. The patient was found to have bigeminy and PVCs which was thought to be secondary to hypokalemia. Potassium level was 2.9 mmol/L on presentation. There has been no recurrence of syncopal symptoms. Hypokalemia has not recurred either. Disposition: From my standpoint, the patient can be discharged. He has an appointment with home training clinic in [place] on , 04/22/2022.
[2022-04-19 14:03] VITALS: BP 145/79; PULSE 90; RESP 18; TEMP 36.7; O2SAT 98
--- NOTE | 2022-04-19 14:20 | CASEMGMT ---
RN CM Face to Face with patient for initial transition planning/care coordination assessment. RN CM introduced self and role at [facility]. Patient lying in bed, alert and oriented. Patient willing to participate in assessment and is able to answer all questions appropriately. Care providers, pharmacy, and demographics verified. Patient wishes to discharge home, denies need for home health at this time. Patient states he has no further needs or concerns at this time. CM to follow for discharge planning needs that may arise. PCP: Radha Kurtz DISABILITY BENEFITS SPECIALIST Specialists: Rachel nephrologsit; Froy Rajan science editor Preferred Pharmacy: [facility] Insurance: [employer] Prescription Benefit: yes Living Will/HPOA: none LNOK: daughters Living Arrangements: Patient lives with daughters in a split level home with 10 steps and railing to enter the home. Patient states she is independent at home. Transportation: self, daughter DME/HHC: Patient has built in shower chair, raised toilet, cane, rollator, and grab bars at home. No previous HHC or SNF . Disposition Plan: Patient to discharge home with family support and follow-up plans in place. Summer CALLOWAY, RN, CM
--- NOTE | 2022-04-19 14:34 | PCM.DC ---
Discharge Instructions Diet Discharge Diet: Renal Diet Activity Discharge Activity: Return to Normal Activity Follow Up Care Test Results: Test results from this visit will be discussed in further detail at your follow-up appointment, if applicable. Discharge Plan Admission Admit Date/Time: 04/17/22 22:36 Primary Reason for Your Visit: Near syncope/ventricular arrhythmia/Hypomagnesemia, hypokalemia Attending Provider: Marion Meneses Primary Care Provider: Cesar Ramos Consulting Providers: Leander Soto ; Geovanny Wallace ; Lubna Smallwood ; Rina Kemp Instructions Additional Instructions / Restrictions: Take note of changes to your medications. Continue on Celexa 20mg for 2 more days, last date is 04/21/21. Continue Zoloft 50mg daily until you are off Celexa, then continue at 100mg daily Continue with your antibiotics with peritoneal dialysis as previously scheduled Follow-up with your primary care doctor/room service server within a week for repeat blood work and EKG Discharge Orders/Prescriptions Prescriptions: New sertraline 100 mg Tablet 100 mg PO DAILY 30 Days Qty: 30 0RF Rx Instructions: start from 04/22/22 citalopram 20 mg Tablet 20 mg PO DAILY 2 Days Qty: 0 0RF sertraline 50 mg Tablet 50 mg PO DAILY 2 Days Qty: 2 0RF Rx Instructions: last dose 04/21/22 Continued atorvastatin 40 mg Tablet 40 mg PO QPM clopidogrel 75 mg Tablet 75 mg PO DAILY allopurinol 100 mg Tablet 100 mg PO DAILY aspirin 81 mg Capsule 81 mg PO DAILY fexofenadine 60 mg Tablet 60 mg PO 1XD ezetimibe 10 mg Tablet 10 mg PO DAILY lisinopril 20 mg Tablet 20 mg PO BID levothyroxine [Synthroid] 75 mcg Tablet 75 mcg PO DAILY melatonin 5 mg Tablet 5 mg PO QHS vancomycin in dextrose 5 % 1.75 gram/500 mL Solution 1,750 mg Q5D pantoprazole 40 mg Tablet,Delayed Release (Dr/Ec) 40 mg PO DAILY B complex-vitamin C-folic acid 0.8 mg Tablet 1 tab PO DAILY metoprolol tartrate 25 mg Tablet 12.5 mg PO BID mecobalamin (vitamin B12) [B12 Active] 1,000 mcg Tablet,Chewable 1,000 mcg PO DAILY Discontinued citalopram 40 mg Tablet 40 mg PO DAILY Referrals / Follow Up: Cesar Ramos MD [Primary Care Provider] - Disposition Disposition (needs filled in before D/C Order can be placed): Home, Self Care
--- NOTE | 2022-04-19 14:47 | PCM.DC.SUM ---
Providers Date of Admission: 04/17/22 Date of Discharge: 04/19/22 Primary Care Physician: Dr. Cesar Ramos MD Consultations 04/17/22 23:55 Consult: Cardiology Routine Consulting Provider: Leander Soto Reason for Consult: arrhythmia, near syncope EMERGENT Consult: No Notified: Yes Date Notified: 04/17/22 Time Notified: 23:42 Method of Notification: Text 04/18/22 04:40 Consult: Nephrology Routine Consulting Provider: Geovanny Wallace Reason for Consult: ESRD, on peritoneal dialysis EMERGENT Consult: No Notified: Yes Date Notified: 04/18/22 Time Notified: 04:40 Method of Notification: Text Reason For Visit: NEAR SYNCOPE Diagnosis Discharge Diagnosis (1) ESRD (end stage renal disease): Status: Acute Code(s): N18.6 - End stage renal disease (2) Near syncope: Status: Acute Code(s): R55 - Syncope and collapse (3) Peritonitis associated with peritoneal dialysis: Status: Acute Code(s): T85.71XA - Infection and inflammatory reaction due to peritoneal dialysis catheter, initial encounter Medications at Discharge Home Medications allopurinol 100 mg tablet 100 mg PO DAILY 04/17/22 aspirin 81 mg capsule 81 mg PO DAILY 04/17/22 atorvastatin 40 mg tablet 40 mg PO QPM 04/17/22 clopidogrel 75 mg tablet 75 mg PO DAILY 04/17/22 ezetimibe 10 mg tablet 10 mg PO DAILY 04/17/22 fexofenadine 60 mg tablet 60 mg PO 1XD Check with primary doctor 04/17/22 levothyroxine 75 mcg tablet (Synthroid) 75 mcg PO DAILY 04/17/22 lisinopril 20 mg tablet 20 mg PO BID 04/17/22 melatonin 5 mg tablet 5 mg PO QHS 04/17/22 mecobalamin (vitamin B12) 1,000 mcg chewable tablet (B12 Active) 1,000 mcg PO DAILY supplement 04/18/22 metoprolol tartrate 25 mg tablet 12.5 mg PO BID BP, HR 04/18/22 pantoprazole 40 mg tablet,delayed release 40 mg PO DAILY heartburn 04/18/22 vancomycin 1.75 gram/500 mL in dextrose 5 % intravenous solution 1,750 mg Q5D PERITONITIS 04/18/22 vitamin B complex-vitamin C-folic acid 0.8 mg tablet 1 tab PO DAILY supplement 04/18/22 citalopram 20 mg tablet 20 mg PO DAILY 2 days #0 tabs 04/19/22 sertraline 100 mg tablet 100 mg PO DAILY 30 days #30 tabs 04/19/22 sertraline 50 mg tablet 50 mg PO DAILY 2 days #2 tabs 04/19/22 Hospital Course Operations None Procedures 2-D Echocardiogram Summary of Care Provided Minutes Spent on Discharge: 35 Hospital Course: 76-year-old female with past medical history of ESRD on peritoneal dialysis, recently been on azithromycin for peritonitis. She comes in with feeling lightheaded and had a syncopal episode. She denies any fever or chills. Vitals in the ED were stable. She was noted to have bigeminy on telemetry. EKG shows sinus rhythm with PVCs. Chest x-ray showed large left paraesophageal hernia with moderate adjacent compressive atelectasis. Patient had a magnesium of 1.5 She was admitted to the telemetry unit and monitored. Her magnesium was replaced, potassium was kept greater than 4. She was continued on peritoneal dialysis with vancomycin intraperitoneally. Nephrology was also consulted. Patient had prolonged QTC on EKG. Changes were made to her Celexa with introduction of Zoloft. Her QTC at discharge was 512. She was strongly recommended to follow-up with her primary care doctor or cardiology within 1 week for repeat EKG to monitor QTC. She will need to be on Celexa for 2 more days as well as Zoloft 50 mg daily. She will then need to switch to Zoloft 100 mg daily. This was all explained to the family and they voiced understanding. Physical Exam Narrative Physical exam: General: Alert, Oriented x3, Cooperative, No apparent distress HEENT: Atraumatic Oral: Moist Mucosa Neck: Supple Lungs: Clear to auscultation Cardiovascular: HS I+II, regular, no murmurs Abdomen: Peritoneal dialysis catheter, bowel Sounds Present, Soft, Non Tender Extremities: No edema Skin: No rashes, No breakdown Neurological: Grossly intact Psych/Mental Status: Appropriate Weight / BMI Weight Weight: 97 kg Body Mass Index (BMI) 36.7 ABG / Lab / Microbiology Data Result Diagrams: 04/19/22 05:50 04/19/22 05:50 Laboratory: Laboratory Results - last 24 hr 04/18/22 17:03: Sodium 142, Potassium 4.1, Chloride 106, Carbon Dioxide 30.0, Anion Gap 6, BUN 17, Creatinine 2.14 H, Estim Creat Clear Calc 19.92, Est GFR (MDRD) Af Amer 29 L, Est GFR (MDRD) Non-Af 24 L, BUN/Creatinine Ratio 7.9 L, Glucose 120 H, Calcium 8.1 L, Magnesium 2.4 04/19/22 05:50: WBC 8.0, RBC 3.29 L, Hgb 10.4 L, Hct 31.7 L, MCV 96.4, MCH 31.6, MCHC 32.8, RDW Std Deviation 47.8 H, RDW Coeff of Latrell 13.5, Plt Count 295, MPV 10.9, Immature Gran % (Auto) 0.400, Neut % (Auto) 54.1, Lymph % (Auto) 31.2, [place] % (Auto) 8.5, Eos % (Auto) 5.1 H, Baso % (Auto) 0.7, Absolute Neuts (auto) 4.3, Absolute Lymphs (auto) 2.50, Nucleated RBC % 0 04/19/22 05:50: Sodium 142, Potassium 3.7, Chloride 104, Carbon Dioxide 30.0, Anion Gap 8, BUN 17, Creatinine 2.08 H, Estim Creat Clear Calc 20.49, Est GFR (MDRD) Af Amer 30 L, Est GFR (MDRD) Non-Af 25 L, BUN/Creatinine Ratio 8.2 L, Glucose 90, Calcium 7.8 L 04/19/22 05:50: Random Vancomycin 4.0 Radiography Diagnostic Testing: Radiology Impression Echocardiogram 04/19/22 05:55 Interpretation Summary Normal LV size. Left ventricular systolic function is normal. The estimated ejection fraction is 60 %. Stage 1 diastolic dysfunction. Pulmonary artery systolic pressure is 33 mmHg. Mild (1+) eccentric aortic valve insufficiency. Ordering Physician: Lubna Smallwood Referring Physician: Cesar Ramos Performed By: Rosmery Sandoval, ANDREW, RVT D/C Instructions Discharge Diet: Renal Diet Meaningful Use Info Meaningful Use Diagnoses (Choose all that apply): None applicable Discharge Plan Admission Admit Date/Time: 04/17/22 22:36 Primary Reason for Your Visit: Near syncope/ventricular arrhythmia/Hypomagnesemia, hypokalemia Attending Provider: Marion Meneses Primary Care Provider: Cesar Ramos Consulting Providers: Leander Soto ; Geovanny Wallace ; Lubna Smallwood ; Rina Kemp Instructions Additional Instructions / Restrictions: Take note of changes to your medications. Continue on Celexa 20mg for 2 more days, last date is 04/21/21. Continue Zoloft 50mg daily until you are off Celexa, then continue at 100mg daily Continue with your antibiotics with peritoneal dialysis as previously scheduled Follow-up with your primary care doctor/numerical control machine operator within a week for repeat blood work and EKG Discharge Orders/Prescriptions Prescriptions: New sertraline 100 mg Tablet 100 mg PO DAILY 30 Days Qty: 30 0RF Rx Instructions: start from 04/22/22 citalopram 20 mg Tablet 20 mg PO DAILY 2 Days Qty: 0 0RF sertraline 50 mg Tablet 50 mg PO DAILY 2 Days Qty: 2 0RF Rx Instructions: last dose 04/21/22 Continued atorvastatin 40 mg Tablet 40 mg PO QPM clopidogrel 75 mg Tablet 75 mg PO DAILY allopurinol 100 mg Tablet 100 mg PO DAILY aspirin 81 mg Capsule 81 mg PO DAILY fexofenadine 60 mg Tablet 60 mg PO 1XD ezetimibe 10 mg Tablet 10 mg PO DAILY lisinopril 20 mg Tablet 20 mg PO BID levothyroxine [Synthroid] 75 mcg Tablet 75 mcg PO DAILY melatonin 5 mg Tablet 5 mg PO QHS vancomycin in dextrose 5 % 1.75 gram/500 mL Solution 1,750 mg Q5D pantoprazole 40 mg Tablet,Delayed Release (Dr/Ec) 40 mg PO DAILY B complex-vitamin C-folic acid 0.8 mg Tablet 1 tab PO DAILY metoprolol tartrate 25 mg Tablet 12.5 mg PO BID mecobalamin (vitamin B12) [B12 Active] 1,000 mcg Tablet,Chewable 1,000 mcg PO DAILY Discontinued citalopram 40 mg Tablet 40 mg PO DAILY Referrals / Follow Up: Cesar Ramos MD [Primary Care Provider] - Disposition Disposition (needs filled in before D/C Order can be placed): Home, Self Care Charges/Coding Visit Charges Inpatient E&M: 93183 Disch Hosp >30min
== END 2022-04-19 15:14 | disposition home or self-care (01) | DRG 308 ==
LOC: ED 22:54 → PCU 04-18 00:08
PROVIDERS: Internal Medicine; Internal Medicine Nephrology; Admitting Provider Student in an Organized Health Care Education/Training Program; Emergency Provider Emergency Medicine; PCP Internal Medicine; Visit Provider Internal Medicine
DX: I49.8 Other specified cardiac arrhythmias (principal); T85.71XA Infection and inflammatory reaction due to peritoneal dialysis catheter, initial encounter; Z99.2 Dependence on renal dialysis; N18.6 End stage renal disease; I12.0 Hypertensive chronic kidney disease with stage 5 chronic kidney disease or end stage renal disease; K65.0 Generalized (acute) peritonitis; J98.11 Atelectasis; E03.9 Hypothyroidism, unspecified; E83.42 Hypomagnesemia; E78.5 Hyperlipidemia, unspecified; F17.210 Nicotine dependence, cigarettes, uncomplicated; E87.6 Hypokalemia; K44.9 Diaphragmatic hernia without obstruction or gangrene; X58.XXXA Exposure to other specified factors, initial encounter; I49.3 Ventricular premature depolarization; B95.7 Other staphylococcus as the cause of diseases classified elsewhere; R77.8 Other specified abnormalities of plasma proteins; R55 Syncope and collapse; Z79.02 Long term (current) use of antithrombotics/antiplatelets; Z79.82 Long term (current) use of aspirin; Z79.899 Other long term (current) drug therapy; Z86.73 Personal history of transient ischemic attack (TIA), and cerebral infarction without residual deficits; Z79.890 Hormone replacement therapy
CPT/HCPCS: 36415; 71045; 80048; 80202; 83735; 84443; 84484; 85025; 93005; 93306; 96361; 96365; 96366; 96367; 96372; 97162; 97165; 99221; 99284; J7030; A4216; G0378